=== PATIENT | male | born 1965 | race African-American/Black ===

== ENCOUNTER 2017-08-06 19:32 | Emergency (ER) | payer SELFPAY ==
[~2017-08-06] VITALS: Ht 190.5 cm; Wt 91.0 kg
[2017-08-06 21:15] LABS: BASOPHILS % 0.7 % (0.0-2.0); HEMATOCRIT. 44.7 % (42.0-52.0); LYMPHOCYTES % 15.8 % (20.0-50.0); MEAN CORPUSCULAR HEMOGLOBIN 32.1 pg (28.0-32.0); MEAN CORPUSCULAR VOLUME 95.6 fL (80.0-94.0); MEAN PLATELET VOLUME 8.5 fl (7.4-10.4); MONOCYTES % 6.8 % (2.0-8.0); NEUTROPHILS % 75.7 % (40.0-76.0); PLATELET 145 x1000/uL (130-400); RED BLOOD CELL COUNT 4.67 mill/uL (4.7-6.1); RED CELL DISTRIBUTION WIDTH 15.3 % (11.6-14.6)
[2017-08-06] MEDS ORDERED: SODIUM CHLORIDE 0.9% 500 ML IV ONE (21:17)
[2017-08-06 21:21] LABS: INR 1.1; PARTIAL THROMBOPLASTIN TIME 28.6 sec (23.4-31.0); PROTHROMBIN TIME 11.8 sec (9.4-11.6)
[2017-08-06 21:28] LABS: TROPONIN I 0.04 ng/mL (0.00-0.04)
[2017-08-06] MEDS ORDERED: MIDAZOLAM HCL 2 MG/2 ML VIAL IV ONE (21:30)
[2017-08-06] MEDS ORDERED: PROPOFOL 200MG/20ML VIAL IV ONE (21:30)
[2017-08-06] MEDS ORDERED: ONDANSETRON HCL 4MG/2ML VIAL IV ONE (21:30)
[2017-08-06 22:05] LABS: PHOSPHORUS 2.2 mg/dL (2.5-4.9)
[2017-08-06] MEDS ORDERED: MAGNESIUM 2 G PREMIX 50 ML IV ONE (23:45)
[2017-08-07] MEDS ORDERED: IPRATROPIUM BROMIDE (0.02%) 0.5MG/2.5ML NEB ONE (00:25)
[2017-08-07] MEDS ORDERED: ALBUTEROL (0.083%) 2.5MG/3ML NEB ONE (00:26)
[2017-08-07 03:42] VITALS: BP 130/80
== END 2017-08-07 03:50 | disposition left against medical advice (07) ==
LOC: ER 20:13 → EDBEDREQTM 08-07 00:02 → EDBEDREQ 08-07 00:02 → ER 08-07 03:50 → CANBEDREQ 08-07 07:01
DX: I48.91 Unspecified atrial fibrillation (principal); E83.42 Hypomagnesemia; E11.9 Type 2 diabetes mellitus without complications; I73.9 Peripheral vascular disease, unspecified; I10 Essential (primary) hypertension; F12.10 Cannabis abuse, uncomplicated; Z88.4 Allergy status to anesthetic agent; Z94.0 Kidney transplant status; Z89.431 Acquired absence of right foot; Z79.01 Long term (current) use of anticoagulants
CPT/HCPCS: 36415; 71045; 80048; 80076; 82248; 83735; 84100; 84443; 84484; 85025; 85379; 85610; 85730; 92960; 93005; 96361; 96374; 99152; 99285; J2250; J2405; J7040; Z7610; J2704; J7611

== ENCOUNTER 2017-11-23 14:44 | Emergency (ER) | payer SELFPAY ==
[~2017-11-23] VITALS: Ht 172.7 cm; Wt 91.0 kg
[2017-11-23 15:38] LABS: BASOPHILS % 1.3 % (0.0-2.0); EOSINOPHILS % 2.5 % (0.0-5.0); HEMATOCRIT. 41.7 % (42.0-52.0); HEMOGLOBIN. 13.9 g/dL (14.0-18.0); LYMPHOCYTES % 19.2 % (20.0-50.0); MEAN CORPUSCULAR HEMOGLOBIN 32.2 pg (28.0-32.0); MEAN CORPUSCULAR VOLUME 96.7 fL (80.0-94.0); MEAN PLATELET VOLUME 9.3 fl (7.4-10.4); MONOCYTES % 7.6 % (2.0-8.0); NEUTROPHILS % 69.4 % (40.0-76.0); PLATELET 143 x1000/uL (130-400); RED BLOOD CELL COUNT 4.32 mill/uL (4.7-6.1); RED CELL DISTRIBUTION WIDTH 14.5 % (11.6-14.6)
[2017-11-23 15:42] LABS: CHLORIDE 105 mEq/L (98-107)
[2017-11-23] MEDS ORDERED: KETOROLAC 60MG/2ML VIAL IM ONE (17:30)
[2017-11-23] MEDS ORDERED: CYCLOBENZAPRINE 10MG TABLET PO ONE (17:30)
[2017-11-23 19:05] VITALS: BP 150/98
== END 2017-11-23 19:10 | disposition home or self-care (01) ==
LOC: ER 15:40
DX: N28.9 Disorder of kidney and ureter, unspecified (principal); E11.65 Type 2 diabetes mellitus with hyperglycemia; E11.622 Type 2 diabetes mellitus with other skin ulcer; L97.819 Non-pressure chronic ulcer of other part of right lower leg with unspecified severity; M54.5 Low back pain; G89.29 Other chronic pain; Z79.4 Long term (current) use of insulin
CPT/HCPCS: 36415; 80053; 85025; 96372; 99284; J1885; X7700

== ENCOUNTER 2018-03-27 19:03 | Inpatient (IN) | payer OTHER ==
[~2018-03-27] VITALS: Ht 190.5 cm; Wt 86.2 kg
[~2018-03-27 19:03] MED LIST: AMIO100T4 PO; AMLODIPINE PO; CELL5 MT; INSLIS SUBCUT; LANTUSUD SUBCUT; LISI-186 MT; METOPROLOL PO; PRED5TAB48 PO; TACR0.5C17 PO; TACR1CAP22 MT; [UNRECOGNIZED DRUG - OTHER] PO
[2018-03-27 22:12] LABS: BASOPHILS % 0.7 % (0.0-2.0); EOSINOPHILS % 0.7 % (0.0-5.0); HEMATOCRIT. 44.7 % (42.0-52.0); HEMOGLOBIN. 14.8 g/dL (14.0-18.0); LYMPHOCYTES % 11.4 % (20.0-50.0); MEAN CORPUSCULAR HEMOGLOBIN 32.1 pg (28.0-32.0); MEAN CORPUSCULAR VOLUME 97.2 fL (80.0-94.0); MEAN PLATELET VOLUME 9.3 fl (7.4-10.4); MONOCYTES % 5.3 % (2.0-8.0); NEUTROPHILS % 81.9 % (40.0-76.0); PLATELET 181 x1000/uL (130-400); RED CELL DISTRIBUTION WIDTH 14.3 % (11.6-14.6)
[2018-03-27 22:23] LABS: CHLORIDE 103 mEq/L (98-107)
[2018-03-27] MEDS ORDERED: ONDANSETRON HCL 4MG/2ML INJ IV ONE (23:15)
[2018-03-28] MEDS ORDERED: ASPIRIN 81MG TABLET PO ONE (00:15)
[2018-03-28] MEDS ORDERED: PROMETHAZINE HCL 25MG TABLET PO STA (01:52)
[2018-03-28 04:50] VITALS: BP 134/102
[2018-03-28 08:00] VITALS: BP 122/95
[2018-03-28] MEDS ORDERED: ONDANSETRON HCL 4MG/2ML INJ IV PRN (10:45)
[2018-03-28] MEDS ORDERED: ACETAMINOPHEN 325MG TABLET PO PRN (10:45)
[2018-03-28 12:00] VITALS: BP 115/91
[2018-03-28] MEDS: LISINOPRIL 10MG TABLET PO SCH (13:03)
[2018-03-28] MEDS: AMIODARONE HCL 200 MG TABLET PO SCH ×2 (13:03→20:49)
[2018-03-28] MEDS: AMLODIPINE 5MG TABLET PO SCH ×2 (13:03→20:49)
[2018-03-28] MEDS: ASPIRIN 81MG EC TABLET PO SCH (13:03)
[2018-03-28 16:00] VITALS: BP 135/95
[2018-03-28] MEDS ORDERED: AMLODIPINE 5MG TABLET PO SCH (17:00)
[2018-03-28] MEDS ORDERED: LISINOPRIL 5MG TABLET PO SCH (17:00)
[2018-03-28] MEDS ORDERED: DEXTROSE 50% WATER 50ML SYRINGE IV PRN (17:00)
[2018-03-28] MEDS: PREDNISONE 5MG TABLET PO SCH (17:24)
[2018-03-28] MEDS: BLOOD SUGAR DIAGNOSTIC STRIP TEST SCH ×2 (17:24→20:58)
[2018-03-28] MEDS: ENOXAPARIN 100MG/ML SYR SUBCUT SCH ×2 (17:24→20:53)
[2018-03-28] MEDS ORDERED: TACROLIMUS 0.5 MG CAPSULE PO SCH (18:00)
[2018-03-28] MEDS: MYCOPHENOLATE MOFETIL 500MG TABLET PO SCH (18:30)
[2018-03-28] MEDS: INSULIN LISPRO 100 UNITS/ML SUBCUT SCH ×2 (18:32→21:05)
[2018-03-28 20:00] VITALS: BP 112/84
[2018-03-28] MEDS: METOPROLOL TARTRATE 50MG TABLET PO SCH (20:49)
[2018-03-28 20:50] LABS: INR 1.1; PROTHROMBIN TIME 11.3 sec (9.1-11.1)
[2018-03-28] MEDS ORDERED: METOPROLOL TARTRATE 50MG TABLET PO SCH (21:00)
[2018-03-28] MEDS: INSULIN GLARGINE UD 100 UNITS/ML SYR SUBCUT SCH (21:05)
[2018-03-28 21:12] LABS: CREATINE KINASE 51 IU/L (39-308); CREATINE KINASE MB FRACTION 1.3 ng/mL (0.5-3.6)
[2018-03-29] VITALS: BP 112/75
[2018-03-29] MEDS ORDERED: HYDROCODONE/ACETAMINOPHEN 5/325MG TABLET PO PRN (00:30)
[2018-03-29 04:00] VITALS: BP 105/83
[2018-03-29 06:35] LABS: BASOPHILS % 0.5 % (0.0-2.0); EOSINOPHILS % 0.1 % (0.0-5.0); HEMATOCRIT. 41.1 % (42.0-52.0); HEMOGLOBIN. 13.9 g/dL (14.0-18.0); LYMPHOCYTES % 11.4 % (20.0-50.0); MEAN CORPUSCULAR HEMOGLOBIN 32.8 pg (28.0-32.0); MEAN CORPUSCULAR VOLUME 96.9 fL (80.0-94.0); MEAN PLATELET VOLUME 9.7 fl (7.4-10.4); MONOCYTES % 5.3 % (2.0-8.0); NEUTROPHILS % 82.7 % (40.0-76.0); PLATELET 168 x1000/uL (130-400); RED BLOOD CELL COUNT 4.24 mill/uL (4.7-6.1); RED CELL DISTRIBUTION WIDTH 14.4 % (11.6-14.6)
[2018-03-29] MEDS: BLOOD SUGAR DIAGNOSTIC STRIP TEST SCH ×2 (06:51→12:24)
[2018-03-29 07:38] LABS: CREATINE KINASE MB FRACTION 1.3 ng/mL (0.5-3.6)
[2018-03-29 07:41] LABS: CLARITY URINE CLEAR (CLEAR); COLOR URINE YELLOW (YELLOW); KETONES URINE TRACE (NEGATIVE); LEUKOCYTE ESTERASE URINE NEGATIVE (NEGATIVE); NITRITE URINE NEGATIVE (NEGATIVE); OCCULT BLOOD URINE NEGATIVE (NEGATIVE); PROTEIN URINE 3+ (NEGATIVE); SPECIFIC GRAVITY URINE 1.029 (1.005-1.030)
[2018-03-29 08:00] VITALS: BP 110/80
[2018-03-29] MEDS: INSULIN LISPRO 100 UNITS/ML SUBCUT SCH ×2 (08:58→12:25)
[2018-03-29] MEDS ORDERED: TACROLIMUS 1MG CAPSULE PO SCH (09:00)
[2018-03-29] MEDS: AMIODARONE HCL 200 MG TABLET PO SCH (09:35)
[2018-03-29] MEDS: MYCOPHENOLATE MOFETIL 500MG TABLET PO SCH (09:35)
[2018-03-29] MEDS: LISINOPRIL 10MG TABLET PO SCH (09:35)
[2018-03-29] MEDS: ASPIRIN 81MG EC TABLET PO SCH (09:36)
[2018-03-29] MEDS: METOPROLOL TARTRATE 50MG TABLET PO SCH (09:36)
[2018-03-29] MEDS: AMLODIPINE 5MG TABLET PO SCH (09:36)
[2018-03-29] MEDS: PREDNISONE 5MG TABLET PO SCH (09:36)
[2018-03-29] MEDS: ENOXAPARIN 100MG/ML SYR SUBCUT SCH (09:37)
[2018-03-29] MEDS ORDERED: MAGNESIUM OXIDE 400MG TABLET PO SCH (12:15)
[2018-03-29] MEDS: INSULIN GLARGINE UD 100 UNITS/ML SYR SUBCUT SCH (12:22)
[2018-03-29 14:20] VITALS: BP 122/82
== END 2018-03-29 15:30 | disposition home or self-care (01) | DRG 201 ==
LOC: ER 19:03 → 7WST 03-28 00:17 → EDBEDREQTM 03-28 00:18 → EDBEDREQ 03-28 00:18 → ENRESERV 03-28 02:47
PROVIDERS: ADMIT Internal Medicine; ATTEND Internal Medicine
DX: I48.91 Unspecified atrial fibrillation (principal); E10.22 Type 1 diabetes mellitus with diabetic chronic kidney disease; E10.51 Type 1 diabetes mellitus with diabetic peripheral angiopathy without gangrene; D64.9 Anemia, unspecified; E10.621 Type 1 diabetes mellitus with foot ulcer; I48.92 Unspecified atrial flutter; E83.42 Hypomagnesemia; E86.0 Dehydration; I13.0 Hypertensive heart and chronic kidney disease with heart failure and stage 1 through stage 4 chronic kidney disease, or unspecified chronic kidney disease; N18.9 Chronic kidney disease, unspecified; I44.0 Atrioventricular block, first degree; L97.429 Non-pressure chronic ulcer of left heel and midfoot with unspecified severity; I50.9 Heart failure, unspecified; E87.5 Hyperkalemia; Z94.0 Kidney transplant status; Z90.49 Acquired absence of other specified parts of digestive tract; Z88.8 Allergy status to other drugs, medicaments and biological substances; Z89.421 Acquired absence of other right toe(s)
CPT/HCPCS: 36415; 71045; 80048; 80053; 81003; 82550; 82553; 82962; 83735; 83880; 84443; 84484; 85025; 85610; 93005; 93306; 93970; 96374; 99285; J1650; J1815; J2405; J7507; J7512; J7517; Q0169

== ENCOUNTER 2018-04-07 19:22 | Emergency (ER) | payer OTHER ==
[~2018-04-07] VITALS: Ht 190.5 cm; Wt 91.0 kg
[2018-04-07 21:03] LABS: BASOPHILS % 0.8 % (0.0-2.0); EOSINOPHILS % 0.7 % (0.0-5.0); HEMATOCRIT. 45.8 % (42.0-52.0); HEMOGLOBIN. 15.3 g/dL (14.0-18.0); LYMPHOCYTES % 8.3 % (20.0-50.0); MEAN CORPUSCULAR HEMOGLOBIN 32.8 pg (28.0-32.0); MEAN CORPUSCULAR VOLUME 98.3 fL (80.0-94.0); MEAN PLATELET VOLUME 9.4 fl (7.4-10.4); MONOCYTES % 4.1 % (2.0-8.0); NEUTROPHILS % 86.1 % (40.0-76.0); PLATELET 210 x1000/uL (130-400); RED BLOOD CELL COUNT 4.66 mill/uL (4.7-6.1); RED CELL DISTRIBUTION WIDTH 14.8 % (11.6-14.6)
[2018-04-07 21:14] LABS: CHLORIDE 107 mEq/L (98-107)
[2018-04-07 22:46] VITALS: BP 143/98
== END 2018-04-08 00:30 | disposition left against medical advice (07) ==
LOC: ER 19:22 → CANBEDREQ 04-08 02:54
DX: N17.9 Acute kidney failure, unspecified (principal); I50.9 Heart failure, unspecified; R09.89 Other specified symptoms and signs involving the circulatory and respiratory systems; I44.1 Atrioventricular block, second degree; D53.9 Nutritional anemia, unspecified; R73.9 Hyperglycemia, unspecified; E86.0 Dehydration; I11.0 Hypertensive heart disease with heart failure; E11.65 Type 2 diabetes mellitus with hyperglycemia; D72.0 Genetic anomalies of leukocytes; I48.91 Unspecified atrial fibrillation; R00.2 Palpitations; Z94.0 Kidney transplant status; Z98.890 Other specified postprocedural states; Z88.8 Allergy status to other drugs, medicaments and biological substances; Z79.4 Long term (current) use of insulin; Z79.899 Other long term (current) drug therapy
CPT/HCPCS: 36415; 71045; 83880; 84484; 93005; 99285

== ENCOUNTER 2018-06-28 14:26 | Inpatient (IN) | payer OTHER ==
[~2018-06-28] VITALS: Ht 190.5 cm; Wt 86.2 kg
[2018-06-28] MEDS ORDERED: ASPIRIN 81MG TABLET PO ONE (16:15)
[2018-06-28 16:37] LABS: HEMATOCRIT. 43.5 % (42.0-52.0); HEMOGLOBIN. 14.3 g/dL (14.0-18.0); MEAN CORPUSCULAR HEMOGLOBIN 31.3 pg (28.0-32.0); MEAN CORPUSCULAR VOLUME 95.1 fL (80.0-94.0); MEAN PLATELET VOLUME 8.5 fl (7.4-10.4); PLATELET 216 x1000/uL (130-400); RED BLOOD CELL COUNT 4.58 mill/uL (4.7-6.1); RED CELL DISTRIBUTION WIDTH 14.5 % (11.6-14.6)
[2018-06-28 16:41] LABS: CHLORIDE 104 mEq/L (98-107)
[2018-06-28 16:48] LABS: D-DIMER 0.38 mg/L FEU (<0.50); INR 1.1; PARTIAL THROMBOPLASTIN TIME 34.2 sec (23.4-31.0); PROTHROMBIN TIME 10.7 sec (9.1-11.1)
[2018-06-28 16:56] LABS: PLATELET ESTIMATE NORMAL
[2018-06-28] MEDS: CLONIDINE 0.1MG TABLET PO PRN (22:00)
[2018-06-28] MEDS: HYDROCODONE/ACETAMINOPHEN 10/325MG TABLET PO PRN (22:26)
[2018-06-28 22:35] VITALS: BP 120/96
[2018-06-28 22:44] VITALS: BP 120/96
[2018-06-29] MEDS ORDERED: LISI10TA5 PO (00:35)
[2018-06-29] MEDS ORDERED: AMLO5TAB88 PO (00:35)
[2018-06-29] MEDS ORDERED: METO-539 PO (00:35)
[2018-06-29] MEDS ORDERED: RIVA10TA PO (00:35)
[2018-06-29] MEDS ORDERED: AMIO100T4 PO (00:35)
[2018-06-29] MEDS ORDERED: INSU100I28 SQ (00:42)
[2018-06-29] MEDS ORDERED: GUAIFENESIN 200MG/10ML SUGAR FREE UDC PO PRN (01:15)
[2018-06-29] MEDS ORDERED: DEXTROSE 50% WATER 50ML SYRINGE IV PRN (01:15)
[2018-06-29 04:00] VITALS: BP 119/99
[2018-06-29] MEDS: BLOOD SUGAR DIAGNOSTIC STRIP TEST SCH ×3 (06:28→17:31)
[2018-06-29] MEDS: HYDROCODONE/ACETAMINOPHEN 10/325MG TABLET PO PRN ×2 (06:28→14:44)
[2018-06-29] MEDS: INSULIN LISPRO 100 UNITS/ML SUBCUT SCH ×3 (06:29→17:31)
[2018-06-29 07:26] LABS: BASOPHILS % 0.6 % (0.0-2.0); EOSINOPHILS % 2.5 % (0.0-5.0); HEMATOCRIT. 39.5 % (42.0-52.0); HEMOGLOBIN. 12.9 g/dL (14.0-18.0); LYMPHOCYTES % 9.9 % (20.0-50.0); MEAN CORPUSCULAR HEMOGLOBIN 31.4 pg (28.0-32.0); MEAN CORPUSCULAR VOLUME 95.7 fL (80.0-94.0); MEAN PLATELET VOLUME 9.6 fl (7.4-10.4); MONOCYTES % 7.9 % (2.0-8.0); NEUTROPHILS % 79.1 % (40.0-76.0); PLATELET 196 x1000/uL (130-400); RED BLOOD CELL COUNT 4.12 mill/uL (4.7-6.1); RED CELL DISTRIBUTION WIDTH 14.1 % (11.6-14.6)
[2018-06-29 08:00] VITALS: BP 107/86
[2018-06-29] MEDS ORDERED: TACROLIMUS 1MG CAPSULE PO ONE (09:00)
[2018-06-29] MEDS ORDERED: TACROLIMUS 1MG CAPSULE PO SCH (09:00)
[2018-06-29] MEDS ORDERED: AMIODARONE HCL 200 MG TABLET PO SCH ×2 (09:00→17:00)
[2018-06-29] MEDS ORDERED: LISINOPRIL 10MG TABLET PO SCH (09:00)
[2018-06-29] MEDS ORDERED: AMLODIPINE 5MG TABLET PO SCH (09:00)
[2018-06-29] MEDS ORDERED: PREDNISONE 5MG TABLET PO SCH (09:00)
[2018-06-29] MEDS ORDERED: METOPROLOL TARTRATE 50MG TABLET PO SCH ×2 (09:00→17:00)
[2018-06-29] MEDS: MYCOPHENOLATE MOFETIL 500MG TABLET PO SCH ×2 (09:21→17:30)
[2018-06-29] MEDS ORDERED: MORPHINE SULFATE 4 MG/ML CPJ (NOT FOR IM USE) IV PRN (10:00)
[2018-06-29] MEDS ORDERED: HYDROMORPHONE HCL/PF 2MG/ML CPJ IV PRN (10:00)
[2018-06-29] MEDS ORDERED: INSULIN GLARGINE UD 100 UNITS/ML SYR SUBCUT SCH (10:00)
[2018-06-29] MEDS ORDERED: MAGNESIUM OXIDE 400MG TABLET PO SCH (10:15)
[2018-06-29 12:00] VITALS: BP 125/94
[2018-06-29] MEDS ORDERED: PROMETHAZINE HCL 25MG TABLET PO PRN (12:00)
[2018-06-29] MEDS: CLONIDINE 0.1MG TABLET PO PRN (14:35)
[2018-06-29 16:30] VITALS: BP 123/95
[2018-06-29] MEDS ORDERED: RIVAROXABAN 10 MG TABLET PO SCH (17:00)
[2018-06-29] MEDS ORDERED: TACROLIMUS 0.5 MG CAPSULE PO SCH (17:00)
[2018-06-29] MEDS ORDERED: TACROLIMUS 0.5 MG CAPSULE PO ONE (17:00)
[2018-06-29 18:36] VITALS: BP 123/95
== END 2018-06-29 19:14 | disposition short-term general hospital (02) | DRG 201 ==
LOC: ER 14:26 → 5WST 17:19 → EDBEDREQ 17:24 → EDBEDREQTM 17:24 → 5WST 23:03
PROVIDERS: ADMIT Internal Medicine; ATTEND Internal Medicine
DX: R00.0 Tachycardia, unspecified (principal); E11.22 Type 2 diabetes mellitus with diabetic chronic kidney disease; E11.51 Type 2 diabetes mellitus with diabetic peripheral angiopathy without gangrene; I48.91 Unspecified atrial fibrillation; E11.621 Type 2 diabetes mellitus with foot ulcer; E83.42 Hypomagnesemia; I48.0 Paroxysmal atrial fibrillation; E78.5 Hyperlipidemia, unspecified; I12.9 Hypertensive chronic kidney disease with stage 1 through stage 4 chronic kidney disease, or unspecified chronic kidney disease; N18.3 Chronic kidney disease, stage 3 (moderate); Z79.01 Long term (current) use of anticoagulants; Z79.899 Other long term (current) drug therapy; Z94.0 Kidney transplant status; Z88.9 Allergy status to unspecified drugs, medicaments and biological substances; Z79.4 Long term (current) use of insulin; Z89.429 Acquired absence of other toe(s), unspecified side
CPT/HCPCS: 36415; 71045; 73718; 80048; 82962; 83036; 83735; 83880; 84443; 84484; 85379; 93005; 99285; J1170; J1815; J7507; J7512; J7517; Q0169